=== PATIENT | male | born 1965 | race Hispanic/Latino ===

== ENCOUNTER 2019-06-15 14:44 | Emergency (ER) | payer OTHER ==
--- NOTE | 2019-06-15 15:57 | RAD ---
LEFT HIP: 06/15/19 Two views. HISTORY: Fall with injury. Transcervical fracture through the neck of the left femur is noted without significant displacement apparent. The visualized pelvis appears intact. IMPRESSION: Left femoral neck fracture. POS: OFF
[2019-06-15 16:04] LABS: #Eosinphils 0.1 thou/uL (0.0-0.7); #Lymphocytes 1.2 thou/uL (1.20-3.40); #Monocytes 0.5 thou/uL (0.11-0.59); #Neutrophils 6.1 thou/uL (1.40-6.50); %Basophils 0.3 % (0.0-1.0); %Eosinophils 0.7 % (0.0-10.0); %Lymphocytes 14.8 % (21.0-51.0); %Monocytes 6.7 % (0.0-10.0); %Neutrophils 77.6 % (42.0-75.0); Mean Corpuscular HGB CONC 34.1 g/dL (32.0-36.0); Mean Corpuscular Volume 93.9 fL (78.0-98.0); Mean Platelet Volume 7.7 fL (7.4-10.4); Platelet Count 166 thou/uL (130-400); RBC Distribution Width 11.5 % (11.5-14.5); Red Blood Cell (RBC) Count 4.36 mill/uL (4.70-6.10); White Blood Cell (WBC) Count 7.9 thou/uL (4.8-10.8)
--- NOTE | 2019-06-15 16:06 | RAD ---
AP CHEST: 06/15/19 HISTORY: Preop evaluation. The lung gallardo are clear. Heart and mediastinum appear normal. Vasculature normal. IMPRESSION: No acute findings. POS: OFF
[2019-06-15 16:28] LABS: ALT (SGPT) 9 U/L (8-55); AST (SGOT) 15 U/L (5-34); Albumin 4.2 g/dL (3.5-5.0); Alkaline Phosphatase 75 U/L (40-110); Anion Gap 10 mmol/L (10-20); BUN (Urea Nitrogen) 20 mg/dL (8.4-25.7); Bilirubin, Total 0.4 mg/dL (0.2-1.2); Calc. Creatinine Clearance 0 mL/min (70-130); Calcium 9.5 mg/dL (7.8-10.44); Carbon Dioxide 26 mmol/L (22-29); Chloride 105 mmol/L (98-107); Estimated GFR-MDRD 85; Globulin 3.1 g/dL (2.4-3.5); Glucose 101 mg/dL (70-105); Potassium 4.3 mmol/L (3.5-5.1); Protein, Total 7.3 g/dL (6.0-8.3); Sodium 137 mmol/L (136-145)
[2019-06-15] MEDS ORDERED: Morphine 4 MG/ML VIAL ONE ×2 (17:01→19:25)
[2019-06-15] MEDS ORDERED: Ondansetron PF 4 MG/2 ML Vial ONE (17:02)
--- NOTE | 2019-06-18 14:43 | EKG ---
Test Reason : Blood Pressure : / mmHG Vent. Rate : 066 BPM Atrial Rate : 066 BPM P-R Int : 130 ms QRS Dur : 074 ms QT Int : 420 ms P-R-T Axes : 012 063 066 degrees QTc Int : 440 ms Normal sinus rhythm Minimal voltage criteria for LVH, may be normal variant Borderline ECG Confirmed by CORNELIO SILVEIRA DO ([id number]), editor trade journal DARON MUNGUIA ([id number]) on 06/18/2019 2:42:21 PM Referred By: Confirmed By:CORNELIO SILVEIRA DO
== END 2019-06-15 19:36 | disposition short-term general hospital (02) ==
LOC: EEVIPCON 14:44 → ERS 14:44
DX: S72.002A Fracture of unspecified part of neck of left femur, initial encounter for closed fracture (principal); W19.XXXA Unspecified fall, initial encounter
CPT/HCPCS: 36415; 71045; 80053; 85025; 86850; 86900; 86901; 93005; 96374; 96375; 96376; J2270; J2405